=== PATIENT | male | born 1945 | race Caucasian/White ===

== ENCOUNTER → 2017-06-15 | Outpatient (CLI) | payer MEDICARE ==
[~2017-06-15] MED LIST: ACYC-114 PO; AMLO5TAB2 PO; ASPI-650 PO; CYAN1TAB29 PO; CYCL-259 PO; DEXT4TAB PO; DICL75TA2 PO; DIPH25CA61 PO; ESCI20TA PO; GABA-827 PO; GABA300C10 PO; HYDR-3237 PO; HYDR-3245 PO; INSU100C5 SQ-INSULIN; INSU100I13 SQ; LOSA100T6 PO; METF10002 PO; MULT-658 PO; OMEP-110 PO; SIMV20TA3 PO; TIZA2TAB PO; TRAZ100T15 PO; VARD20TA2 PO; VITAMIN B PO; VITAMIN D PO; [UNRECOGNIZED DRUG - CODE] HOMETP
[2017-06-15 10:13] LABS: MICROSCOPIC NOT IND
[2017-06-15 10:16] LABS: BASOPHILS # (AUTO) 0.05 x10^3/uL (0-0.1); BASOPHILS % (AUTO) 1 % (0-1); EOSINOPHILS % (AUTO) 1 % (1-7); LYMPHOCYTES # (AUTO) 1.66 x10^3/uL (1-3.4); LYMPHOCYTES % (AUTO) 19 % (22-44); MD NO; MEAN CORPUSCULAR HEMOGLOBIN 29.4 pg (27.5-34.5); MEAN CORPUSCULAR HGB CONC 32.7 g/dL (33.2-36.2); MEAN CORPUSCULAR VOLUME 89.8 fL (81-97); MEAN PLATELET VOLUME 7.5 fL (7.4-10.4); MONOCYTES # (AUTO) 0.42 x10^3/uL (0.2-0.8); MONOCYTES % (AUTO) 5 % (2-9); NEUTROPHILS % (AUTO) 74 % (42-75); PLATELET COUNT 368 x10^3/uL (130-400); RED BLOOD COUNT 4.79 x10^6/uL (4.38-5.82); RED CELL DISTRIBUTION WIDTH 13.9 % (9.4-14.8)
[2017-06-15 10:20] LABS: INTERNATIONAL NORMALIZED RATIO 0.98 (0.93-1.1); PROTHROMBIN TIME 10.1 Seconds (9.6-11.5)
[2017-06-15 10:24] LABS: CULTURE INDICATED? NO
[2017-06-15 10:27] LABS: ANION GAP 7 mmol/L (5-15); CHLORIDE 98 mmol/L (98-107)
[2017-06-15 10:30] LABS: ALANINE AMINOTRANSFERASE 22 U/L (12-78); ALKALINE PHOSPHATASE 78 U/L (45-117); BILIRUBIN,TOTAL 0.4 mg/dL (0.2-1.0); TOTAL PROTEIN 7.2 g/dL (6.4-8.2)
[2017-06-15 12:40] LABS: HEMOGLOBIN A1C 8.5 % (4.2-6.3)
== END | disposition home or self-care (01) ==
LOC: STAR 08:55
PROVIDERS: ATTEND Neurological Surgery
DX: Z01.818 Encounter for other preprocedural examination (principal); R06.02 Shortness of breath; M48.061 Spinal stenosis, lumbar region without neurogenic claudication
CPT/HCPCS: 36415; 71046; 80053; 81003; 83036; 85025; 85610; 85730; 93005

== ENCOUNTER 2017-06-22 05:35 | Inpatient (IN) | payer MEDICARE ==
[~2017-06-22] VITALS: Ht 167.6 cm; Wt 88.1 kg
[2017-06-22] MEDS ORDERED: LACTATED RINGERS 1,000 ML IV SCH (06:15)
[2017-06-22] MEDS ORDERED: MIDAZOLAM 1 MG/ML, 2ML ONE (06:40)
[2017-06-22 06:41] VITALS: BP 131/78
[2017-06-22] MEDS ORDERED: FENTANYL PF 250 MCG/5ML ONE (06:41)
[2017-06-22] MEDS ORDERED: EPINEPHRINE 1 MG/ML, 1ML ONE ×2 (06:42→08:23)
[2017-06-22] MEDS ORDERED: BACITRACIN 50,000 UNIT ONE (06:42)
[2017-06-22] MEDS ORDERED: THROMBIN 5,000 UNIT VIAL TP ONE (06:42)
[2017-06-22] MEDS ORDERED: BUPIVACAINE/PF 0.5% ONE ×2 (06:42→08:23)
[2017-06-22] MEDS ORDERED: PROPOFOL 10 MG/ML, 20ML ONE (06:44)
[2017-06-22] MEDS ORDERED: GLYCOPYRROLATE 0.4 MG/2 ML, 2ML ONE (06:46)
[2017-06-22] MEDS ORDERED: NEOSTIGMINE 1 MG/ML, 10ML ONE (06:46)
[2017-06-22] MEDS ORDERED: ROCURONIUM 10MG/ML,5ML ONE (06:46)
[2017-06-22] MEDS ORDERED: CEFAZOLIN 1,000 MG ONE ×2 (06:47)
[2017-06-22] MEDS ORDERED: WATER-INJECTION,STERILE 10 ML IV ONE ×2 (06:47→08:27)
[2017-06-22] MEDS ORDERED: INSULIN SINGLE DOSE, ER SQ-INSULIN ONE ×2 (06:59→09:59)
[2017-06-22] MEDS ORDERED: INSULIN REGULAR 100 UNITS/ML, 3ML VIAL SQ-INSULIN ONE ×2 (07:00→10:30)
[2017-06-22] MEDS ORDERED: PROMETHAZINE 12.5 MG SUPP PR PRN (07:30)
[2017-06-22] MEDS ORDERED: ONDANSETRON 2MG/ML, 2ML IVPush PRN ×2 (07:30→09:30)
[2017-06-22] MEDS ORDERED: morphine SULFATE 10 MG/ML, 1ML IV PRN (07:30)
[2017-06-22] MEDS ORDERED: PROMETHAZINE 25 MG/ML, 1ML IV PRN (07:30)
[2017-06-22] MEDS ORDERED: DIAZEPAM 5 MG/ML, 2ML IVPush PRN (07:30)
[2017-06-22] MEDS ORDERED: LABETALOL 5MG/ML, 20ML IV PRN (07:30)
[2017-06-22] MEDS ORDERED: FENTANYL PF 100 MCG/2ML IV PRN (07:30)
[2017-06-22] MEDS ORDERED: hydrALAzine 20 MG/ML, 1ML IV PRN (07:30)
[2017-06-22] MEDS ORDERED: MEPERIDINE/PF 25MG/0.5ML IVPush PRN (07:30)
[2017-06-22] MEDS ORDERED: OXYcodone 5 MG/5 ML ORAL.SOL UDC PO PRN (07:30)
[2017-06-22] MEDS ORDERED: PHENYLEPHRINE 10 MG/ML ONE (08:00)
[2017-06-22] MEDS ORDERED: VASOPRESSIN 20 UNIT/ML, 1ML ONE (08:27)
[2017-06-22] MEDS ORDERED: HYDROmorphone PCA 30 MG/30 ML IV PRN (09:30)
[2017-06-22] MEDS ORDERED: BISACODYL 10 MG SUPP PR PRN (09:30)
[2017-06-22] MEDS ORDERED: PHARMACY MAY ADJ FOR RENAL FX MC PRN (09:30)
[2017-06-22] MEDS ORDERED: PROMETHAZINE 25 MG/ML, 1ML IM PRN (09:30)
[2017-06-22] MEDS: NS + 20MEQ KCL 1,000 ML IV SCH ×2 (09:30→20:13)
[2017-06-22] MEDS ORDERED: MAGNESIUM HYDROXIDE 8%, 30ML UDC PO PRN (09:30)
[2017-06-22] MEDS ORDERED: HYDROmorphone 2 MG/ML, 1ML ONE (09:58)
[2017-06-22] MEDS ORDERED: OXYcodone 5 MG/5 ML ORAL.SOL UDC ONE (09:59)
[2017-06-22] MEDS: HYDROmorphone 1 MG/ML, 1ML IV PRN ×2 (10:05→10:19)
[2017-06-22] MEDS: INSULIN LISPRO 100 UNITS/ML, PEN SQ-INSULIN SCH ×3 (12:30→20:15)
[2017-06-22 13:27] VITALS: BP 90/54
[2017-06-22] MEDS: CEFAZOLIN PMX 1GM/50ML 50 ML IVPB SCH (15:43)
[2017-06-22] MEDS: ACYCLOVIR 400 MG TABLET PO SCH ×2 (15:46→20:14)
[2017-06-22] MEDS: GABAPENTIN 300 MG CAPSULE PO SCH ×2 (15:46→20:14)
[2017-06-22] MEDS: SODIUM CHLORIDE FLUSH 10ML SYR IVF SCH (20:13)
[2017-06-22] MEDS: TRAZODONE 100MG TABLET PO SCH (20:14)
[2017-06-22] MEDS: DIPHENHYDRAMINE 25 MG CAPSULE PO SCH (20:15)
[2017-06-22] MEDS: CYCLOBENZAPRINE 10 MG TABLET PO PRN (20:23)
[2017-06-22] MEDS: SIMVASTATIN 20 MG TABLET PO SCH (20:23)
[2017-06-22 21:18] VITALS: BP 158/82
[2017-06-23 00:02] VITALS: BP 128/73
[2017-06-23] MEDS: CEFAZOLIN PMX 1GM/50ML 50 ML IVPB SCH (00:04)
[2017-06-23] MEDS: HYDROcodone/APAP 10/325 MG TABLET PO PRN ×4 (01:15→21:04)
[2017-06-23 03:09] VITALS: BP 110/60
[2017-06-23] MEDS: NS + 20MEQ KCL 1,000 ML IV SCH (05:30)
[2017-06-23 08:17] VITALS: BP 130/72
[2017-06-23] MEDS: GABAPENTIN 300 MG CAPSULE PO SCH ×3 (08:23→20:21)
[2017-06-23] MEDS: ACYCLOVIR 400 MG TABLET PO SCH ×3 (08:24→20:21)
[2017-06-23] MEDS: AMLODIPINE 5 MG TABLET PO SCH (08:24)
[2017-06-23] MEDS: SODIUM CHLORIDE FLUSH 10ML SYR IVF SCH ×2 (08:24→20:22)
[2017-06-23] MEDS: OMEPRAZOLE 20 MG CAPSULE.DR PO SCH (08:24)
[2017-06-23] MEDS: SENNA/DOCUSATE TABLET PO SCH (08:24)
[2017-06-23] MEDS: LOSARTAN 50MG TABLET PO SCH (08:24)
[2017-06-23] MEDS: INSULIN LISPRO 100 UNITS/ML, PEN SQ-INSULIN SCH ×4 (08:37→21:00)
[2017-06-23] MEDS: INSULIN GLARGINE 100 UNITS/ML, PEN SQ-INSULIN SCH (09:42)
[2017-06-23] MEDS: CYCLOBENZAPRINE 10 MG TABLET PO PRN ×2 (10:18→18:39)
[2017-06-23 12:49] VITALS: BP 133/73
[2017-06-23 20:17] VITALS: BP 149/67
[2017-06-23] MEDS: SIMVASTATIN 20 MG TABLET PO SCH (20:21)
[2017-06-23] MEDS: TRAZODONE 100MG TABLET PO SCH (21:04)
[2017-06-23] MEDS: DIPHENHYDRAMINE 25 MG CAPSULE PO SCH (21:04)
[2017-06-24] MEDS: HYDROcodone/APAP 10/325 MG TABLET PO PRN (01:03)
[2017-06-24 01:05] VITALS: BP 143/70
[2017-06-24] MEDS: MORPHINE SULFATE 4 MG/ML, 1ML IVPush PRN ×2 (01:42→04:02)
[2017-06-24] MEDS: CYCLOBENZAPRINE 10 MG TABLET PO PRN (03:19)
[2017-06-24] MEDS ORDERED: METHOCARBAMOL 750 MG TABLET PO PRN (07:30)
[2017-06-24 08:03] VITALS: BP 133/57
[2017-06-24] MEDS: INSULIN LISPRO 100 UNITS/ML, PEN SQ-INSULIN SCH ×4 (08:13→21:51)
[2017-06-24] MEDS: INSULIN GLARGINE 100 UNITS/ML, PEN SQ-INSULIN SCH (09:00)
[2017-06-24] MEDS ORDERED: TRAZODONE 100MG TABLET PO PRN (09:00)
[2017-06-24] MEDS: SODIUM CHLORIDE FLUSH 10ML SYR IVF SCH ×2 (09:00→19:48)
[2017-06-24] MEDS: LOSARTAN 50MG TABLET PO SCH (09:00)
[2017-06-24] MEDS: AMLODIPINE 5 MG TABLET PO SCH (09:00)
[2017-06-24] MEDS: HYDROcodone/APAP 5/325 TABLET PO PRN ×3 (10:09→19:48)
[2017-06-24] MEDS: OMEPRAZOLE 20 MG CAPSULE.DR PO SCH (10:12)
[2017-06-24] MEDS: ACYCLOVIR 400 MG TABLET PO SCH ×3 (10:12→19:48)
[2017-06-24] MEDS: SENNA/DOCUSATE TABLET PO SCH (10:13)
[2017-06-24] MEDS: GABAPENTIN 300 MG CAPSULE PO SCH ×3 (10:13→19:48)
[2017-06-24] MEDS ORDERED: MORPHINE SULFATE 4 MG/ML, 1ML IVPush PRN (10:30)
[2017-06-24 12:39] VITALS: BP 127/74
[2017-06-24] MEDS: METHOCARBAMOL 500 MG TABLET PO PRN (15:38)
[2017-06-24] MEDS ORDERED: ACETAMINOPHEN 325 MG TABLET PO PRN (16:00)
[2017-06-24 19:20] VITALS: BP 124/65
[2017-06-24] MEDS: SIMVASTATIN 20 MG TABLET PO SCH (19:48)
[2017-06-24] MEDS: DIPHENHYDRAMINE 25 MG CAPSULE PO SCH (21:50)
[2017-06-25] MEDS: METHOCARBAMOL 500 MG TABLET PO PRN ×3 (00:14→13:39)
[2017-06-25 01:19] VITALS: BP 154/74
[2017-06-25] MEDS: HYDROcodone/APAP 5/325 TABLET PO PRN ×3 (01:21→08:40)
[2017-06-25] MEDS: INSULIN LISPRO 100 UNITS/ML, PEN SQ-INSULIN SCH ×2 (07:43→11:00)
[2017-06-25 07:55] VITALS: BP 158/75
[2017-06-25] MEDS: ACYCLOVIR 400 MG TABLET PO SCH (08:40)
[2017-06-25] MEDS: OMEPRAZOLE 20 MG CAPSULE.DR PO SCH (08:40)
[2017-06-25] MEDS: LOSARTAN 50MG TABLET PO SCH (08:40)
[2017-06-25] MEDS: SENNA/DOCUSATE TABLET PO SCH (08:40)
[2017-06-25] MEDS: AMLODIPINE 5 MG TABLET PO SCH (08:40)
[2017-06-25] MEDS: GABAPENTIN 300 MG CAPSULE PO SCH (08:40)
[2017-06-25] MEDS: INSULIN GLARGINE 100 UNITS/ML, PEN SQ-INSULIN SCH (08:42)
[2017-06-25] MEDS: SODIUM CHLORIDE FLUSH 10ML SYR IVF SCH (08:44)
[2017-06-25] MEDS ORDERED: HYDROcodone/APAP 5/325 TABLET ONE (11:27)
[2017-06-25] MEDS ORDERED: HYDROcodone/APAP 5/325 TABLET PO PRN (13:00)
[2017-06-25 13:59] VITALS: BP 161/74
[2017-06-25] MEDS ORDERED: HYDR-3237 PO (14:13)
== END 2017-06-25 14:30 | disposition home or self-care (01) | DRG 517 ==
LOC: OUT 05:35 → OBSVTOIN 09:24 → ORIP 09:24 → 4NOR 11:41 → DCLOUNGE 06-25 14:05
PROVIDERS: ADMIT Neurological Surgery; ATTEND Neurological Surgery
PROC: 01NB0ZZ Release Lumbar Nerve, Open Approach (ICD-10-PCS; principal; 2017-06-22 07:30)
DX: M48.061 Spinal stenosis, lumbar region without neurogenic claudication (principal); M54.16 Radiculopathy, lumbar region; Z87.891 Personal history of nicotine dependence; Z88.8 Allergy status to other drugs, medicaments and biological substances; Z88.6 Allergy status to analgesic agent
CPT/HCPCS: 72100; 82962; J0171; J0690; J1170; J2250; J2270; J2704; J2710; J3010; J3480; J3490; J1815; J2370; J7120; Q0163